=== PATIENT | male | born 1965 | race Caucasian/White ===

== ENCOUNTER 2025-02-01 01:50 | Emergency (ER) | payer OTHER ==
[~2025-02-01] VITALS: Ht 172.7 cm; Wt 77.3 kg
[2025-02-01 02:12] VITALS: TEMP 97.9
[2025-02-01] MEDS: HYDROCODONE/ACETAMINOPHEN 5-325 MG TABLET PO ONE (02:38)
[2025-02-01 04:20] VITALS: BP 124/88; PULSE 77; RESP 17; O2SAT 96
== END 2025-02-01 05:00 | disposition home or self-care (01) ==
LOC: EMS 01:55
DX: S40.012A Contusion of left shoulder, initial encounter (principal); I10 Essential (primary) hypertension; F12.90 Cannabis use, unspecified, uncomplicated; F17.210 Nicotine dependence, cigarettes, uncomplicated; W22.8XXA Striking against or struck by other objects, initial encounter; W22.03XA Walked into furniture, initial encounter; Y93.89 Activity, other specified; Y92.89 Other specified places as the place of occurrence of the external cause; Y99.8 Other external cause status
CPT/HCPCS: 99283

== ENCOUNTER 2025-02-17 00:20 | Emergency (ER) | payer OTHER ==
[~2025-02-17] VITALS: Ht 170.2 cm; Wt 68.2 kg
[2025-02-17 00:27] VITALS: BP 132/76; PULSE 94; RESP 17; TEMP 97.8; O2SAT 98
[2025-02-17] MEDS ORDERED: NAPR-1196 PO (03:38)
[2025-02-17] MEDS: KETOROLAC TROMETHAMINE 60 MG/2 ML VIAL IM ONE (03:47)
== END 2025-02-17 06:36 | disposition home or self-care (01) ==
LOC: EMS 00:24
DX: M25.512 Pain in left shoulder (principal); I10 Essential (primary) hypertension; F12.90 Cannabis use, unspecified, uncomplicated; F17.210 Nicotine dependence, cigarettes, uncomplicated; F10.90 Alcohol use, unspecified, uncomplicated; Z59.00 Homelessness unspecified; Y90.9 Presence of alcohol in blood, level not specified
CPT/HCPCS: 99283; 96372; J1885